=== PATIENT | male | born 1990 | race African-American/Black ===

== ENCOUNTER 2018-04-14 23:18 | Emergency (ER) | payer OTHER | END 2018-04-14 23:26 | disposition left against medical advice (07) | LOC: ERS 23:18 | DX: Z53.21 Procedure and treatment not carried out due to patient leaving prior to being seen by health care provider (principal) ==

== ENCOUNTER 2018-04-14 23:44 | Emergency (ER) | payer BC, OTHER ==
[2018-04-15] MEDS ORDERED: Bacitracin Zinc 1 Packet ONE (00:45)
== END 2018-04-15 00:55 | disposition home or self-care (01) ==
LOC: SCSER 23:44
DX: S51.812A Laceration without foreign body of left forearm, initial encounter (principal); W27.8XXA Contact with other nonpowered hand tool, initial encounter; Y93.01 Activity, walking, marching and hiking; Y92.89 Other specified places as the place of occurrence of the external cause; Y99.0 Civilian activity done for income or pay
CPT/HCPCS: 12001

== ENCOUNTER 2020-02-26 21:05 | Emergency (ER) | payer SELFPAY ==
--- NOTE | 2020-02-26 22:40 | RAD ---
Left toes 3 views HISTORY: Injury. FINDINGS: Joint spaces are preserved. No acute fracture or dislocation are apparent. IMPRESSION : No abnormalities are demonstrated.
== END 2020-02-26 23:02 | disposition home or self-care (01) ==
LOC: ERS 21:05
DX: S90.122A Contusion of left lesser toe(s) without damage to nail, initial encounter (principal); X58.XXXA Exposure to other specified factors, initial encounter

== ENCOUNTER 2022-04-07 11:01 | Emergency (ER) | payer SELFPAY ==
[2022-04-07 12:49] LABS: SARS-CoV-2 NAA Rapid Test DETECTED (NotDetected)
== END 2022-04-07 11:20 | disposition home or self-care (01) ==
LOC: ERS 11:01
DX: U07.1 COVID-19 (principal)
CPT/HCPCS: 99283